=== PATIENT | female | born 1995 | race American Indian/Alaskan Native ===

== ENCOUNTER 2018-06-10 16:53 | Outpatient (CLI) | payer OTHER ==
[2018-06-10] MEDS ORDERED: PITOCin/NS 20 UNIT/1000ML DRIP 20,000 MILLIUNITS/1,000 ML BAG IV ONE (17:15)
[2018-06-10] MEDS ORDERED: LACTATED RINGERS 500 ML IV ONE (19:18)
--- NOTE | 2018-06-10 23:16 | Ultrasound Report ---
FINAL REPORT PROCEDURE: US OB LIMITED TECHNIQUE: Real-time limited sonographic examination was performed for evaluation of size, position, heartbeat, fluid volume for each fetus with image documentation (1 or more fetuses). CPT 37021 HISTORY: vaginal bleeding COMPARISON: No prior studies are available for comparison. FINDINGS: There is a single fetus in a vertex presentation. The placenta is along the posterior uterus. No evidence of abruption is identified. heart rate 130 beats per minute. No other measurements are obtained. IMPRESSION: There is a single fetus in vertex presentation. The placenta is along the posterior uterus. No placental abnormalities are noted. Examination is limited.
== END 2018-06-10 22:58 | disposition home or self-care (01) ==
LOC: TRG 16:53
PROVIDERS: ATTEND Obstetrics & Gynecology
DX: O47.02 False labor before 37 completed weeks of gestation, second trimester (principal); Z3A.23 23 weeks gestation of pregnancy
CPT/HCPCS: 59025; 76815; J2590

== ENCOUNTER 2020-01-09 13:18 | Outpatient (CLI) | payer OTHER ==
[2020-01-09] MEDS ORDERED: LACTATED RINGERS 1,000 ML IV ONE (13:31)
[2020-01-09 13:38] VITALS: BP 128/81
[2020-01-09 14:03] LABS: Bilirubin,Urine NEG (Negative); Blood,Urine NEG (Negative); Color,Urine Yellow (Yellow); Mucus,Urine FEW /HPF; Protein,Urine <15 mg/dL mg/dL (Negative); RBC,Urine < 1.0 /HPF (0.0-6.0); Urobilinogen,Urine < 2.0 mg/dL (<2.0)
--- NOTE | 2020-01-10 05:12 | Ultrasound Report ---
ULTRASOUND OB LIMITED HISTORY: Evaluate presentation TECHNIQUE: Transabdominal ultrasound FINDINGS: A single intrauterine is identified in cephalic position. heart rate measur es 163 bpm. Signer Name: Shakir Velazquez Jr, MD Signed: 01/09/2020 3:46 PM Workstation Name: [id number]
== END 2020-01-09 15:53 | disposition home or self-care (01) ==
LOC: TRG 13:18 → APU 13:19 → TRG 15:53
PROVIDERS: ATTEND Obstetrics & Gynecology
DX: O62.9 Abnormality of forces of labor, unspecified (principal); Z3A.35 35 weeks gestation of pregnancy
CPT/HCPCS: 59025; 76815; 81001; 96360; 96361; J7120